=== PATIENT | female | born 1985 | race Caucasian/White ===

== ENCOUNTER 2022-07-29 13:02 | Emergency (ER) | payer MEDICAID ==
[~2022-07-29] VITALS: Ht 157.5 cm; Wt 88.5 kg
[~2022-07-29 13:02] MED LIST: BUTA-1 PO
--- NOTE | 2022-07-29 13:26 | NUR ---
Pt arrived in stable condition, v/s are WNL. Pt stated that she feels confused and disoriented the past few days. Pt stated that she was at [facility] a month ago for opthalmology appt, according to the pt her occular muscles are weak per MD's report. She had a urinary urgency and incontinence episode that never happened before. ERMD in room for MSE.
[2022-07-29 14:00] LABS: HEMATOCRIT 40.9 % (31.2-41.9); MEAN CORPUSCULAR HEMOGLOBIN 28.2 uug (24.7-32.8); MEAN CORPUSCULAR VOLUME 83.7 fL (75.5-95.3); PLATELET COUNT (AUTO) 320 K/uL (179-408)
[2022-07-29 14:19] LABS: *BILIRUBIN,URIN NEGATIVE (NEGATIVE); *BLOOD, URINE 1+ (NEGATIVE); *CLARITY,URINE CLEAR (CLEAR); *COLOR,URINE YELLOW (YELLOW); *KETONES,URINE NEGATIVE (NEGATIVE); *UROBILINOGEN,URINE 0.2 E.U./dl (NORMAL); LEUKOCYTE ESTERASE ,URINE NEGATIVE (NEGATIVE); NITRITE, URINE NEGATIVE (NEGATIVE); PH,URINE 6.5 (5.0-8.0); UGLUCOSE NEGATIVE (NEGATIVE)
[2022-07-29 14:43] LABS: *URINE HCG, QUAL NEG (NEGATIVE)
[2022-07-29 14:48] LABS: CREATININE 0.8 mg/dL (0.6-1.3); POTASSIUM 3.9 mmol/L (3.5-5.1)
[2022-07-29 14:53] LABS: BILIRUBIN,TOTAL 1.2 mg/dL (0.2-1.0); TOTAL PROTEIN, SERUM 7.9 g/dL (6.4-8.2)
[2022-07-29 15:16] LABS: THYROID STIMULATING HORMONE 2.935 mIU/mL (0.358-3.740)
[2022-07-29] MEDS ORDERED: METF-440 PO (16:41)
[2022-07-29 17:05] VITALS: BP 120/78
--- NOTE | 2022-07-29 17:06 | NUR ---
Patient discharged to home in stable condition. Written and verbal after care instructions given. Patient verbalizes understanding of instructions. Stressed follow up or return to ER for worsening s/s.
[2022-07-29 17:09] LABS: BACTERIA,URINE NONE SEEN /HPF (NONE SEEN); RBC,URINE 0-3 /HPF (0-3); SQUAMOUS EPITHELIAL CELL,UR FEW /HPF (NONE SEEN); WBC,URINE 0-3 /HPF (0-3)
== END 2022-07-29 17:06 | disposition home or self-care (01) ==
LOC: ER 13:02
DX: R53.1 Weakness (principal); R41.0 Disorientation, unspecified; R53.83 Other fatigue; Z20.822 Contact with and (suspected) exposure to COVID-19; E11.9 Type 2 diabetes mellitus without complications; M06.9 Rheumatoid arthritis, unspecified
CPT/HCPCS: 36415; 84443; 84703; 85025; 93005; A4663

== ENCOUNTER 2022-08-02 13:20 | Inpatient (IN) | payer MEDICAID ==
[~2022-08-02] VITALS: Ht 157.5 cm; Wt 88.5 kg
[~2022-08-02 13:20] MED LIST changes: +METF-440 PO
--- NOTE | 2022-08-02 14:27 | NUR ---
[email or web address], medical screening exam in progress
--- NOTE | 2022-08-02 14:39 | NUR ---
"Plan to admit" per Dr Austin, ER staff/admitting staff Jade notified.
--- NOTE | 2022-08-02 14:42 | NUR ---
NIF: 60 cm H2O, FVC: 2.5 L
[2022-08-02 14:54] LABS: HEMATOCRIT 41.8 % (31.2-41.9); MEAN CORPUSCULAR HEMOGLOBIN 27.8 uug (24.7-32.8); MEAN CORPUSCULAR VOLUME 83.4 fL (75.5-95.3); PLATELET COUNT (AUTO) 340 K/uL (179-408)
[2022-08-02 15:03] LABS: CREATININE 0.7 mg/dL (0.6-1.3); POTASSIUM 3.5 mmol/L (3.5-5.1)
[2022-08-02 15:09] LABS: *BILIRUBIN,URIN NEGATIVE (NEGATIVE); *BLOOD, URINE 2+ (NEGATIVE); *CLARITY,URINE CLEAR (CLEAR); *COLOR,URINE YELLOW (YELLOW); *KETONES,URINE NEGATIVE (NEGATIVE); *UROBILINOGEN,URINE 0.2 E.U./dl (NORMAL); LEUKOCYTE ESTERASE ,URINE NEGATIVE (NEGATIVE); NITRITE, URINE NEGATIVE (NEGATIVE); UGLUCOSE NEGATIVE (NEGATIVE)
[2022-08-02 15:14] LABS: *URINE HCG, QUAL NEG (NEGATIVE)
[2022-08-02 15:15] LABS: BILIRUBIN,DIRECT 0.2 mg/dL (0.0-0.2); BILIRUBIN,TOTAL 1.4 mg/dL (0.2-1.0); TOTAL PROTEIN, SERUM 7.9 g/dL (6.4-8.2)
--- NOTE | 2022-08-02 16:59 | NUR ---
Patient's father is [email or web address].
[2022-08-02 17:53] LABS: BACTERIA,URINE FEW /HPF (NONE SEEN); RBC,URINE 0-3 /HPF (0-3); SQUAMOUS EPITHELIAL CELL,UR FEW /HPF (NONE SEEN); WBC,URINE NONE SEEN /HPF (0-3)
--- NOTE | 2022-08-02 18:26 | NUR ---
Patient is eating hot dinner tray with good appetite, NAD. Room 309 was given but this assigned room is not ready or clean at this time per 3rd floor staff veterinarian Leah. EVS staff is actively cleaning the rooms right now.
--- NOTE | 2022-08-02 19:21 | NUR ---
Patient is still waiting for an accepting 3rd floor nurse and clean room. Nursing SBAR was given to VLADIMIR Cruz.
[2022-08-02] MEDS ORDERED: ACETAMINOPHEN 325 MG TABLET PO PRN (20:15)
[2022-08-02] MEDS ORDERED: ONDANSETRON 4 MG/2 ML VIAL IV PRN (20:15)
[2022-08-02] MEDS ORDERED: HYDROCODONE/APAP 5-325MG TABLET PO PRN (20:15)
--- NOTE | 2022-08-02 20:21 | NUR ---
Gave report to nurse Riley.
--- NOTE | 2022-08-02 22:43 | NUR ---
Transported pt via wheelchair to Med-Surg, rm 309, received by Nurse Riley. Pt is stable, AOx4, denies pain and dizziness.
--- NOTE | 2022-08-02 22:45 | NUR ---
Received patient from ER via w/c, alert and oriented x4, in no acute distress. Denies chest pain. Routine admission care rendered, oriented to room, BR, TV and call light. Care plan initiated. Needs assessed and attended to. Call light within easy reach.
[2022-08-02 23:11] VITALS: BP 119/69
[2022-08-03] MEDS ORDERED: PYRIDOSTIGMINE BROMIDE 60 MG TABLET ONE (01:01)
[2022-08-03] MEDS: PYRIDOSTIGMINE BROMIDE 60 MG TABLET PO SCH ×2 (01:15→08:34)
[2022-08-03 04:50] VITALS: BP 118/66
[2022-08-03 06:03] LABS: HEMATOCRIT 38.3 % (31.2-41.9); MEAN CORPUSCULAR HEMOGLOBIN 28.1 uug (24.7-32.8); MEAN CORPUSCULAR VOLUME 84.1 fL (75.5-95.3); PLATELET COUNT (AUTO) 321 K/uL (179-408)
[2022-08-03 06:24] LABS: BILIRUBIN,TOTAL 2.1 mg/dL (0.2-1.0); CREATININE 0.8 mg/dL (0.6-1.3); PHOSPHOROUS 3.2 mg/dL (2.5-4.9); POTASSIUM 3.8 mmol/L (3.5-5.1); TOTAL PROTEIN, SERUM 7.1 g/dL (6.4-8.2)
[2022-08-03] MEDS ORDERED: PANTOPRAZOLE SODIUM 40 MG TABLET.DR PO SCH (07:00)
--- NOTE | 2022-08-03 07:30 | NUR ---
RECEIVED PATIENT IN BED AWAKE ALERT AND ORIENTED VERBALLY RESPONSIVE DENIES PAIN OR DISCOMFORTS AT THIS TIME ON ROOM AIR WITH NO SHORTNESS OF BREATH PATIENT REORIENTED TO ROOM AND TO HOSPITAL PROTOCOL CALL LIGHTS AND PERSONAL BELONGINGS ARE WITHIN EASY REACH AT THIS TIME WILL CONTINUE TO OBSERVE AND PROVIDE COMFORT.
[2022-08-03] MEDS ORDERED: METFORMIN HCL 500 MG TABLET PO SCH (08:00)
--- NOTE | 2022-08-03 12:00 | NUR ---
D/C PLANNING PATIENT SEEN AND EXAMINED BY DR LEIVA WITH ORDER TO DISCHARGE HOME TODAY PATIENT AWARE AND STATED THAT HE DAD KATARZYNA WILL BE ABLE TO PICK HIM UP THIS AFTERNOON
[2022-08-03 12:20] VITALS: BP 120/64
[2022-08-03] MEDS ORDERED: PYRI60TA2 PO (12:50)
[2022-08-03] MEDS ORDERED: HYDR-4209 PO (12:50)
--- NOTE | 2022-08-03 14:00 | NUR ---
Pt discharged. Picked up by her father, Brannon, in satisfactory condition, with discharge instructions, and prescriptions. Pt instructed to call for follow-up appointment with her primary doctor and her neurologist within the next 1 week, and she expressed understanding.
== END 2022-08-03 14:00 | disposition home or self-care (01) | DRG 42 ==
LOC: ER 13:22 → MEDSURG3 17:25
PROVIDERS: ADMIT Internal Medicine; ATTEND Internal Medicine
DX: G70.00 Myasthenia gravis without (acute) exacerbation (principal); E11.9 Type 2 diabetes mellitus without complications; R53.1 Weakness; M06.9 Rheumatoid arthritis, unspecified; Z20.822 Contact with and (suspected) exposure to COVID-19; E66.9 Obesity, unspecified; E80.4 Gilbert syndrome; E80.6 Other disorders of bilirubin metabolism; Z68.35 Body mass index [BMI] 35.0-35.9, adult; G43.909 Migraine, unspecified, not intractable, without status migrainosus; Z79.84 Long term (current) use of oral hypoglycemic drugs; E78.1 Pure hyperglyceridemia
CPT/HCPCS: 36415; 71045; 83550; 83735; 84100; 84443; 84703; 85025; 87400; 93005; A4663; G0378